=== PATIENT | female | born 1990 | race Caucasian/White ===

== ENCOUNTER 2016-11-18 00:50 | Emergency (ER) | payer OTHER ==
[~2016-11-18] VITALS: Ht 170.2 cm; Wt 165.4 kg
[~2016-11-18 00:50] MED LIST: ABILIFY10 MG PO; ABILIFY5 MG PO; ADDERALL30 MG PO; ALPRAZOLAM0.5 MG PO; ATARAX,VISTARIL50 MG PO; HYDROCODON-ACE1 EAC7 PO; LEXAPRO10 MG PO; NAPROSYN500 MG PO; PRENATAL1 EACH PO; PROZAC40 MG PO; TRAMADOL HCL50 MG PO; XANAX0.5 MG PO
[2016-11-18 02:05] LABS: ADD MIUA? YES; BILIRUBIN NEGATIVE; BLOOD NEGATIVE; COLOR YELLOW ((YELLOW)); GLUCOSE (STRIP) NEGATIVE; KETONES NEGATIVE; LEUKOCYTES NEGATIVE; NITRITE NEGATIVE; PROTEIN (STRIP) NEGATIVE; SPECIFIC GRAVITY 1.023 (1.000-1.030); UROBILINOGEN 0.2 MG/DL (0.2-1.0)
[2016-11-18 02:12] LABS: BACTERIA 2+ /HPF; CALCIUM OXALATE CRYSTALS 1+ /HPF; EPITHELIAL CELLS 1+ /HPF; HYALINE CASTS 0-5 /LPF; MUCUS 1+ /LPF; RED BLOOD CELLS 0-5 /HPF (0-5); UCUL ADDED? YES; WHITE BLOOD CELLS 0-5 /HPF (0-5)
[2016-11-18 02:26] VITALS: BP 146/70
== END 2016-11-18 02:27 | disposition home or self-care (01) ==
LOC: EME 00:50
PROVIDERS: Emergency Medicine
DX: E86.0 Dehydration (principal); F32.9 Major depressive disorder, single episode, unspecified; F41.9 Anxiety disorder, unspecified; E66.9 Obesity, unspecified; Z68.43 Body mass index [BMI] 50.0-59.9, adult; F17.200 Nicotine dependence, unspecified, uncomplicated
CPT/HCPCS: 81003; 84702; 84703; 87077; 87086 GA; 87186; 99281; 99283

== ENCOUNTER 2016-12-27 01:42 | Emergency (ER) | payer OTHER ==
[~2016-12-27] VITALS: Ht 170.2 cm; Wt 171.3 kg
[2016-12-27 02:02] VITALS: BP 183/91
== END 2016-12-27 02:39 | disposition left against medical advice (07) ==
LOC: EME 01:42
DX: M43.6 Torticollis (principal); Z53.21 Procedure and treatment not carried out due to patient leaving prior to being seen by health care provider
CPT/HCPCS: 84702

== ENCOUNTER 2017-02-04 13:47 | Emergency (ER) | payer OTHER ==
[~2017-02-04] VITALS: Ht 170.2 cm; Wt 168.2 kg
[2017-02-04 14:48] LABS: HEMATOCRIT 35.6 % (36.0-46.0); MCH 26.1 PG (29.0-34.0); MCHC 32.6 G/DL (30.0-36.0); MCV 80.2 FL (83-99); MEAN PLAT.VOLUME 10.7 uM^3 (9.5-12.4); PLATELET COUNT 234 K/uL (156-360); RBC DIS.WIDTH-CV 14.8 % (11.8-14.6); RBC DIS.WIDTH-SD 43.2 % (39-53); RED BLOOD COUNT 4.44 M/uL (3.80-5.20); WHITE BLOOD COUNT 8.6 K/uL (4.1-10.2)
[2017-02-04 14:56] LABS: CHLORIDE 106 mEq/L (99-109); POTASSIUM 3.9 mEq/L (3.7-5.4); SODIUM 139 mEq/L (136-147)
[2017-02-04 14:58] LABS: GLUCOSE 126 mg/dL (70-99)
[2017-02-04 14:59] LABS: ANION GAP 10 MEQ/L (2-14)
[2017-02-04 15:02] LABS: GFR ESTIMATE (CALCULATED) > 59 mL/min/
[2017-02-04 15:03] LABS: UREA NITROGEN (BUN) 8 mg/dL (9-23)
[2017-02-04 15:27] LABS: QUANTITATIVE HCG 47633.6 MIU/ML
[2017-02-04 15:57] LABS: ADD MIUA? YES; BILIRUBIN NEGATIVE; BLOOD MODERATE; GLUCOSE (STRIP) NEGATIVE; KETONES NEGATIVE; LEUKOCYTES NEGATIVE; NITRITE NEGATIVE; PROTEIN (STRIP) >=500; SPECIFIC GRAVITY 1.032 (1.000-1.030); UROBILINOGEN 0.2 MG/DL (0.2-1.0)
[2017-02-04 16:00] LABS: COLOR RED ((YELLOW))
[2017-02-04 16:01] LABS: BACTERIA NONE SEEN /HPF; CASTS NONE SEEN /LPF; CRYSTALS NONE SEEN; EPITHELIAL CELLS RARE /HPF; MUCUS NONE SEEN /LPF; RED BLOOD CELLS TNTC /HPF (0-5); WHITE BLOOD CELLS NONE SEEN /HPF (0-5)
[2017-02-04] MEDS ORDERED: ZOFRAN ODT4 MG PO (18:40)
[2017-02-04] MEDS ORDERED: ULTRACET1 TABLET PO (18:40)
[2017-02-04 19:39] VITALS: BP 101/80
== END 2017-02-04 19:41 | disposition home or self-care (01) ==
LOC: EME 13:47
PROVIDERS: Physician Assistant
DX: O20.0 Threatened abortion (principal); O99.341 Other mental disorders complicating pregnancy, first trimester; F32.9 Major depressive disorder, single episode, unspecified; F41.9 Anxiety disorder, unspecified; O99.331 Smoking (tobacco) complicating pregnancy, first trimester; F17.200 Nicotine dependence, unspecified, uncomplicated; Z3A.11 11 weeks gestation of pregnancy; O99.211 Obesity complicating pregnancy, first trimester; E66.01 Morbid (severe) obesity due to excess calories; Z68.43 Body mass index [BMI] 50.0-59.9, adult
CPT/HCPCS: 76801; 80048; 81003; 84702; 85027; 99281; 99284; J3010; J7030

== ENCOUNTER 2017-05-24 16:49 | Emergency (ER) | payer OTHER ==
[~2017-05-24] VITALS: Ht 170.2 cm; Wt 178.9 kg
[~2017-05-24 16:49] MED LIST changes: +ULTRACET1 TABLET PO; +ZOFRAN ODT4 MG PO
[2017-05-24 16:56] VITALS: BP 136/79
== END 2017-05-24 19:18 | disposition left against medical advice (07) ==
LOC: EME 16:49
DX: R09.89 Other specified symptoms and signs involving the circulatory and respiratory systems (principal); M54.9 Dorsalgia, unspecified; Z53.21 Procedure and treatment not carried out due to patient leaving prior to being seen by health care provider
CPT/HCPCS: 80053; 81003; 85027; 87502

== ENCOUNTER 2017-07-29 17:17 | Outpatient (CLI) | payer OTHER ==
[~2017-07-29] VITALS: Ht 170.2 cm; Wt 176.0 kg
[2017-07-29 17:22] VITALS: BP 131/71
[2017-07-29 17:23] VITALS: BP 131/71
[2017-07-29 17:54] VITALS: BP 140/71
[2017-07-29 18:16] LABS: BASOPHIL (%) 0.2 % (0-1); EOSINOPHIL (%) 0.6 % (0-5); EOSINOPHIL COUNT 0.1 K/uL (0-0.3); HEMATOCRIT 34.3 % (36.0-46.0); HEMOGLOBIN 11.1 G/DL (11.9-15.5); IMMATURE GRANULOCYTE (%) 0.7 % (0.0-0.7); LYMPHOCYTE (%) 23.8 % (15-42); LYMPHOCYTE COUNT 2.1 K/uL (1.0-2.8); MCH 26.4 PG (29.0-34.0); MCHC 32.4 G/DL (30.0-36.0); MCV 81.7 FL (83-99); MONOCYTE (%) 5.3 % (3-12); MONOCYTE COUNT 0.5 K/uL (0-0.8); NEUTROPHIL (%) 69.4 % (45-76); PLATELET COUNT 242 K/uL (156-360); RBC DIS.WIDTH-CV 15.6 % (11.8-14.6); RBC DIS.WIDTH-SD 46.7 % (39-53); WHITE BLOOD COUNT 8.7 K/uL (4.1-10.2)
[2017-07-29 18:24] VITALS: BP 135/64
[2017-07-29 18:38] LABS: ALBUMIN 3.2 G/DL (3.2-4.8); ALKALINE PHOSPHATASE 103 IU/L (3-129); ALT (GPT) 10 IU/L (3-49); AST (GOT) 15 IU/L (2-34); CHLORIDE 106 MEQ/L (99-109); CREATININE 0.6 MG/DL (0.6-1.3); GFR ESTIMATE (CALCULATED) > 59 mL/min/; GLUCOSE 87 mg/dL (70-99); LACTATE DEHYDROGENASE 104 IU/L (20-246); POTASSIUM 4.5 MEQ/L (3.7-5.4); SODIUM 136 MEQ/L (136-147); TOTAL BILIRUBIN 0.3 MG/DL (0.0-1.0); TOTAL PROTEIN 6.7 G/DL (6.4-8.3); UREA NITROGEN (BUN) 7 mg/dL (9-23); URIC ACID 3.9 mg/dL (3.1-9.2)
[2017-07-29 19:11] LABS: BILIRUBIN NEGATIVE; BLOOD NEGATIVE; COLOR YELLOW ((YELLOW)); GLUCOSE (STRIP) NEGATIVE; KETONES NEGATIVE; LEUKOCYTES NEGATIVE; NITRITE NEGATIVE; PROTEIN (STRIP) NEGATIVE; SPECIFIC GRAVITY 1.024 (1.000-1.030)
[2017-07-29 19:13] VITALS: BP 132/67
[2017-07-29 19:13] LABS: APPEARANCE CLEAR ((CLEAR)); UCUL ADDED? NO
[2017-07-29 19:38] LABS: UR CREATININE CONCENTRATION 132.9 MG/DL
[2017-07-29 19:43] VITALS: BP 117/57
[2017-07-29 20:11] LABS: AMPHETAMINE NEGATIVE (500 ng/mL); BARBITURATES NEGATIVE (200 ng/mL); BENZODIAZEPINES NEGATIVE (150 ng/mL); BUPRENORPHINE NEGATIVE (10 ng/mL); COCAINE NEGATIVE (150 ng/mL); METHADONE NEGATIVE (200 ng/mL); METHAMPHETAMINE NEGATIVE (500 ng/mL); OPIATES (MORPHINE) NEGATIVE (100 ng/mL); OXYCODONE NEGATIVE (100 ng/mL); PHENCYCLIDINE NEGATIVE (25 ng/mL); PROPOXYPHENE NEGATIVE (300 ng/mL); THC CANNABINOIDS PRESUMPTIVE POSITIVE (50 ng/mL); TRICYCLIC ANTIDEPRESSANTS NEGATIVE (300 ng/mL)
[2017-07-29] MEDS ORDERED: ADULT ASPIRIN81 MG PO (20:37)
[2017-07-29] MEDS ORDERED: PROMETHAZINE HC25 M1 PO (20:38)
[2017-07-29] MEDS ORDERED: PRENATAL TABLE1 EAC3 PO (20:38)
== END 2017-07-29 20:40 | disposition home or self-care (01) ==
LOC: LDRP-OP → 2WEST 17:19 → LDRP-OP 09-26 13:30
PROVIDERS: Advanced Practice Midwife
DX: O13.3 Gestational [pregnancy-induced] hypertension without significant proteinuria, third trimester (principal); Z3A.35 35 weeks gestation of pregnancy
CPT/HCPCS: 80053; 81003; 82570; 83615; 84156; 84550; 84999; 85025; G0378

== ENCOUNTER 2017-08-10 15:24 | Outpatient (CLI) | payer OTHER ==
[~2017-08-10 15:24] MED LIST changes: +ADULT ASPIRIN81 MG PO; +PRENATAL TABLE1 EAC3 PO; +PROMETHAZINE HC25 M1 PO
[2017-08-10 15:52] VITALS: BP 128/63
[2017-08-10 16:28] VITALS: BP 130/62
[2017-08-10 16:40] LABS: BASOPHIL (%) 0.2 % (0-1); EOSINOPHIL (%) 0.3 % (0-5); HEMATOCRIT 33.3 % (36.0-46.0); HEMOGLOBIN 10.9 G/DL (11.9-15.5); IMMATURE GRANULOCYTE (%) 0.5 % (0.0-0.7); LYMPHOCYTE (%) 23.5 % (15-42); LYMPHOCYTE COUNT 2.3 K/uL (1.0-2.8); MCH 26.8 PG (29.0-34.0); MCHC 32.7 G/DL (30.0-36.0); MONOCYTE (%) 4.2 % (3-12); MONOCYTE COUNT 0.4 K/uL (0-0.8); NEUTROPHIL (%) 71.3 % (45-76); NEUTROPHIL COUNT 6.9 K/uL (1.8-6.4); PLATELET COUNT 219 K/uL (156-360); RBC DIS.WIDTH-CV 15.9 % (11.8-14.6); RBC DIS.WIDTH-SD 47.5 % (39-53); RED BLOOD COUNT 4.06 M/uL (3.80-5.20); WHITE BLOOD COUNT 9.6 K/uL (4.1-10.2)
[2017-08-10 17:02] LABS: ALBUMIN 3.1 G/DL (3.2-4.8); ALKALINE PHOSPHATASE 98 IU/L (3-129); ALT (GPT) 9 IU/L (3-49); AST (GOT) 10 IU/L (2-34); CHLORIDE 106 MEQ/L (99-109); CREATININE 0.6 MG/DL (0.6-1.3); GFR ESTIMATE (CALCULATED) > 59 mL/min/; GLUCOSE 81 mg/dL (70-99); POTASSIUM 4.3 MEQ/L (3.7-5.4); SODIUM 136 MEQ/L (136-147); TOTAL BILIRUBIN 0.4 MG/DL (0.0-1.0); TOTAL PROTEIN 6.4 G/DL (6.4-8.3); UREA NITROGEN (BUN) 9 mg/dL (9-23)
[2017-08-10 17:16] LABS: UR CREATININE CONCENTRATION 401.5 MG/DL
[2017-08-10 17:18] VITALS: BP 118/56
== END 2017-08-10 17:30 | disposition home or self-care (01) ==
LOC: LDRP-OP 15:24 → 2WEST 15:26 → LDRP-OP 10-26 22:00
PROVIDERS: Advanced Practice Midwife
DX: O26.893 Other specified pregnancy related conditions, third trimester (principal); R03.0 Elevated blood-pressure reading, without diagnosis of hypertension; O34.219 Maternal care for unspecified type scar from previous cesarean delivery; O99.213 Obesity complicating pregnancy, third trimester; E66.01 Morbid (severe) obesity due to excess calories; O99.343 Other mental disorders complicating pregnancy, third trimester; F41.9 Anxiety disorder, unspecified; F31.9 Bipolar disorder, unspecified; F90.9 Attention-deficit hyperactivity disorder, unspecified type; O99.333 Smoking (tobacco) complicating pregnancy, third trimester; F17.200 Nicotine dependence, unspecified, uncomplicated; Z3A.37 37 weeks gestation of pregnancy
CPT/HCPCS: 59025; 80053; 82570; 84156; 85025; G0378

== ENCOUNTER 2017-08-18 15:25 | Outpatient (CLI) | payer OTHER ==
[2017-08-18] VITALS (16 sets, daily range): BP systolic 121–158; BP diastolic 57–82
[~2017-08-18] VITALS: Ht 170.2 cm; Wt 175.9 kg
[2017-08-18 16:25] LABS: BASOPHIL (%) 0.2 % (0-1); EOSINOPHIL (%) 0.3 % (0-5); HEMATOCRIT 33.6 % (36.0-46.0); HEMOGLOBIN 10.9 G/DL (11.9-15.5); IMMATURE GRANULOCYTE (%) 0.5 % (0.0-0.7); LYMPHOCYTE (%) 22.5 % (15-42); LYMPHOCYTE COUNT 2.2 K/uL (1.0-2.8); MCH 26.4 PG (29.0-34.0); MCHC 32.4 G/DL (30.0-36.0); MCV 81.4 FL (83-99); MONOCYTE (%) 4.6 % (3-12); MONOCYTE COUNT 0.4 K/uL (0-0.8); NEUTROPHIL (%) 71.9 % (45-76); NEUTROPHIL COUNT 6.9 K/uL (1.8-6.4); PLATELET COUNT 239 K/uL (156-360); RBC DIS.WIDTH-CV 15.8 % (11.8-14.6); RED BLOOD COUNT 4.13 M/uL (3.80-5.20); WHITE BLOOD COUNT 9.6 K/uL (4.1-10.2)
[2017-08-18 16:35] LABS: ALBUMIN 3.4 G/DL (3.2-4.8); CHLORIDE 105 MEQ/L (99-109); POTASSIUM 3.8 MEQ/L (3.7-5.4); SODIUM 136 MEQ/L (136-147); TOTAL BILIRUBIN 0.4 MG/DL (0.0-1.0)
[2017-08-18 16:41] LABS: ALKALINE PHOSPHATASE 111 IU/L (3-129); ALT (GPT) 8 IU/L (3-49); AST (GOT) 13 IU/L (2-34); CREATININE 0.6 MG/DL (0.6-1.3); GFR ESTIMATE (CALCULATED) > 59 mL/min/; GLUCOSE 78 mg/dL (70-99); TOTAL PROTEIN 6.6 G/DL (6.4-8.3); UREA NITROGEN (BUN) 13 mg/dL (9-23)
[2017-08-18 16:49] LABS: UR CREATININE CONCENTRATION 180.9 MG/DL
== END 2017-08-18 19:55 | disposition home or self-care (01) ==
LOC: LDRP-OP 15:25 → 2WEST 15:27 → LDRP-OP 10-26 17:48
PROVIDERS: Obstetrics & Gynecology Obstetrics
DX: O99.89 Other specified diseases and conditions complicating pregnancy, childbirth and the puerperium (principal); R51 Headache; O34.219 Maternal care for unspecified type scar from previous cesarean delivery; Z3A.38 38 weeks gestation of pregnancy
CPT/HCPCS: 59025; 80053; 82570; 84156; 85025; G0378

== ENCOUNTER 2017-08-21 09:03 | Inpatient (IN) | payer OTHER ==
[~2017-08-21] VITALS: Ht 170.2 cm; Wt 174.0 kg
[2017-08-21 11:01] LABS: HEMATOCRIT 34.2 % (36.0-46.0); HEMOGLOBIN 11.1 G/DL (11.9-15.5); MCH 27.1 PG (29.0-34.0); MCHC 32.5 G/DL (30.0-36.0); MCV 83.4 FL (83-99); PLATELET COUNT 243 K/uL (156-360); RBC DIS.WIDTH-CV 15.9 % (11.8-14.6); RBC DIS.WIDTH-SD 48.5 % (39-53); WHITE BLOOD COUNT 8.2 K/uL (4.1-10.2)
[2017-08-21 11:12] VITALS: BP 126/63
[2017-08-21 11:37] LABS: ALBUMIN 3.4 G/DL (3.2-4.8); ALKALINE PHOSPHATASE 118 IU/L (3-129); ALT (GPT) 11 IU/L (3-49); AST (GOT) 16 IU/L (2-34); CHLORIDE 105 MEQ/L (99-109); CREATININE 0.6 MG/DL (0.6-1.3); GFR ESTIMATE (CALCULATED) > 59 mL/min/; GLUCOSE 85 mg/dL (70-99); LACTATE DEHYDROGENASE 125 IU/L (20-246); SODIUM 137 MEQ/L (136-147); TOTAL BILIRUBIN 0.4 MG/DL (0.0-1.0); TOTAL PROTEIN 6.4 G/DL (6.4-8.3); UREA NITROGEN (BUN) 7 mg/dL (9-23)
[2017-08-21 16:03] VITALS: BP 121/57
[2017-08-21 17:29] VITALS: BP 110/65
[2017-08-21 19:10] LABS: AMPHETAMINE NEGATIVE (500 ng/mL); BARBITURATES NEGATIVE (200 ng/mL); BENZODIAZEPINES NEGATIVE (150 ng/mL); BUPRENORPHINE NEGATIVE (10 ng/mL); COCAINE NEGATIVE (150 ng/mL); METHADONE NEGATIVE (200 ng/mL); METHAMPHETAMINE NEGATIVE (500 ng/mL); OPIATES (MORPHINE) NEGATIVE (100 ng/mL); OXYCODONE NEGATIVE (100 ng/mL); PHENCYCLIDINE NEGATIVE (25 ng/mL); PROPOXYPHENE NEGATIVE (300 ng/mL); THC CANNABINOIDS PRESUMPTIVE POSITIVE (50 ng/mL); TRICYCLIC ANTIDEPRESSANTS NEGATIVE (300 ng/mL)
[2017-08-21 19:43] VITALS: BP 141/66
[2017-08-21 21:29] VITALS: BP 128/61
[2017-08-21 23:22] VITALS: BP 136/67
[2017-08-22] VITALS (7 sets, daily range): BP systolic 118–144; BP diastolic 56–74
[2017-08-22 06:24] LABS: BASOPHIL (%) 0.2 % (0-1); EOSINOPHIL (%) 0.6 % (0-5); EOSINOPHIL COUNT 0.1 K/uL (0-0.3); HEMATOCRIT 30.4 % (36.0-46.0); HEMOGLOBIN 9.7 G/DL (11.9-15.5); IMMATURE GRANULOCYTE (%) 0.8 % (0.0-0.7); LYMPHOCYTE (%) 21.6 % (15-42); LYMPHOCYTE COUNT 2.3 K/uL (1.0-2.8); MCH 26.7 PG (29.0-34.0); MCHC 31.9 G/DL (30.0-36.0); MCV 83.7 FL (83-99); MONOCYTE COUNT 0.5 K/uL (0-0.8); NEUTROPHIL (%) 71.8 % (45-76); NEUTROPHIL COUNT 7.6 K/uL (1.8-6.4); PLATELET COUNT 213 K/uL (156-360); RBC DIS.WIDTH-SD 48.6 % (39-53); RED BLOOD COUNT 3.63 M/uL (3.80-5.20); WHITE BLOOD COUNT 10.5 K/uL (4.1-10.2)
[2017-08-23 03:29] VITALS: BP 128/58
[2017-08-23 07:28] VITALS: BP 126/52
[2017-08-23 10:40] VITALS: BP 137/66
[2017-08-23] MEDS ORDERED: ARIPIPRAZOLE5 MG PO (11:34)
[2017-08-23] MEDS ORDERED: ENDOCET 5-3251 EACH PO (11:34)
[2017-08-23] MEDS ORDERED: IBUPROFEN800 MG PO (11:34)
[2017-08-23] MEDS ORDERED: BUPROPION XL150 MG PO (11:34)
== END 2017-08-23 13:45 | disposition home or self-care (01) | DRG 765 ==
LOC: 2WEST 09:03 → 2SOUTH 10:39 → 2WEST 08-23 13:45
PROVIDERS: Obstetrics & Gynecology
PROC: 10D00Z1 Extraction of Products of Conception, Low, Open Approach (ICD-10-PCS; principal; 2017-08-21)
PROC: 0UL70CZ Occlusion of Bilateral Fallopian Tubes with Extraluminal Device, Open Approach (ICD-10-PCS; principal; 2017-08-21)
DX: O34.211 Maternal care for low transverse scar from previous cesarean delivery (principal); O99.214 Obesity complicating childbirth; E66.01 Morbid (severe) obesity due to excess calories; F12.90 Cannabis use, unspecified, uncomplicated; O99.324 Drug use complicating childbirth; O13.4 Gestational [pregnancy-induced] hypertension without significant proteinuria, complicating childbirth; O99.344 Other mental disorders complicating childbirth; O69.81X0 Labor and delivery complicated by cord around neck, without compression, not applicable or unspecified; F41.9 Anxiety disorder, unspecified; F90.9 Attention-deficit hyperactivity disorder, unspecified type; F31.9 Bipolar disorder, unspecified; F60.9 Personality disorder, unspecified; O77.0 Labor and delivery complicated by meconium in amniotic fluid; I10 Essential (primary) hypertension; O99.02 Anemia complicating childbirth; D62 Acute posthemorrhagic anemia; O99.334 Smoking (tobacco) complicating childbirth; F17.210 Nicotine dependence, cigarettes, uncomplicated; Z88.5 Allergy status to narcotic agent; Z30.2 Encounter for sterilization; Z3A.39 39 weeks gestation of pregnancy; Z83.3 Family history of diabetes mellitus; Z68.41 Body mass index [BMI] 40.0-44.9, adult; Z37.0 Single live birth; Z79.899 Other long term (current) drug therapy; Z80.8 Family history of malignant neoplasm of other organs or systems; Z82.49 Family history of ischemic heart disease and other diseases of the circulatory system; Z81.8 Family history of other mental and behavioral disorders
CPT/HCPCS: 59025; 80053; 82570; 83615; 84156; 84999; 85025; 85027; 88307; G0378; J0690; J1100; J1885; J2250; J2274; J2405; J7120; J7643; Q0169

== ENCOUNTER 2017-08-25 20:39 | Inpatient (IN) | payer OTHER ==
[~2017-08-25] VITALS: Ht 170.2 cm; Wt 174.2 kg
[~2017-08-25 20:39] MED LIST changes: +ARIPIPRAZOLE5 MG PO; +BUPROPION XL150 MG PO; +ENDOCET 5-3251 EACH PO; +IBUPROFEN800 MG PO
[2017-08-25 21:20] LABS: HEMATOCRIT 31.1 % (36.0-46.0); HEMOGLOBIN 10.2 G/DL (11.9-15.5); MCH 27.3 PG (29.0-34.0); MCHC 32.8 G/DL (30.0-36.0); MCV 83.2 FL (83-99); PLATELET COUNT 247 K/uL (156-360); RBC DIS.WIDTH-CV 15.9 % (11.8-14.6); RBC DIS.WIDTH-SD 48.3 % (39-53); RED BLOOD COUNT 3.74 M/uL (3.80-5.20); WHITE BLOOD COUNT 8.2 K/uL (4.1-10.2)
[2017-08-25 21:38] LABS: ALBUMIN 3.2 g/dL (3.2-4.8); CHLORIDE 107 mEq/L (99-109); POTASSIUM 4.1 mEq/L (3.7-5.4); SODIUM 140 mEq/L (136-147)
[2017-08-25 21:41] LABS: GLUCOSE 86 mg/dL (70-99); TOTAL PROTEIN 6.4 g/dL (6.4-8.3)
[2017-08-25 21:43] LABS: TOTAL BILIRUBIN 0.4 mg/dL (0.0-1.0)
[2017-08-25 21:44] LABS: ALKALINE PHOSPHATASE 91 IU/L (3-129); CREATININE 0.7 mg/dL (0.6-1.3); GFR ESTIMATE (CALCULATED) > 59 mL/min/
[2017-08-25 21:46] LABS: AST (GOT) 16 IU/L (2-34); UREA NITROGEN (BUN) 11 mg/dL (9-23)
[2017-08-25 21:47] LABS: ALT (GPT) 15 IU/L (3-49)
[2017-08-25 21:53] LABS: QUANTITATIVE HCG 41.3 MIU/ML
[2017-08-25] MEDS ORDERED: PROMETHAZINE HC25 M1 PO (22:50)
[2017-08-26] VITALS (7 sets, daily range): BP systolic 118–177; BP diastolic 61–80
[2017-08-26 06:19] LABS: APPEARANCE CLEAR ((CLEAR)); BILIRUBIN NEGATIVE; BLOOD SMALL; COLOR YELLOW ((YELLOW)); GLUCOSE (STRIP) NEGATIVE; KETONES NEGATIVE; LEUKOCYTES NEGATIVE; NITRITE NEGATIVE; PROTEIN (STRIP) NEGATIVE; SPECIFIC GRAVITY 1.016 (1.000-1.030); UROBILINOGEN 0.2 MG/DL (0.2-1.0)
[2017-08-26 06:28] LABS: BACTERIA NONE SEEN /HPF; EPITHELIAL CELLS RARE /HPF; MUCUS TRACE /LPF; RED BLOOD CELLS 0-5 /HPF (0-5); UCUL ADDED? NO; WHITE BLOOD CELLS 0-5 /HPF (0-5)
[2017-08-26] MEDS ORDERED: ABILIFY5 MG PO (13:35)
[2017-08-27 03:30] VITALS: BP 129/60
[2017-08-27 07:39] VITALS: BP 133/63
[2017-08-27 08:16] LABS: BASOPHIL (%) 0.3 % (0-1); EOSINOPHIL (%) 2.6 % (0-5); EOSINOPHIL COUNT 0.2 K/uL (0-0.3); HEMATOCRIT 30.2 % (36.0-46.0); HEMOGLOBIN 9.6 G/DL (11.9-15.5); IMMATURE GRANULOCYTE (%) 0.5 % (0.0-0.7); LYMPHOCYTE (%) 34.3 % (15-42); LYMPHOCYTE COUNT 2.2 K/uL (1.0-2.8); MCH 26.9 PG (29.0-34.0); MCHC 31.8 G/DL (30.0-36.0); MCV 84.6 FL (83-99); MONOCYTE (%) 6.1 % (3-12); MONOCYTE COUNT 0.4 K/uL (0-0.8); NEUTROPHIL (%) 56.2 % (45-76); NEUTROPHIL COUNT 3.5 K/uL (1.8-6.4); PLATELET COUNT 242 K/uL (156-360); RBC DIS.WIDTH-CV 15.8 % (11.8-14.6); RBC DIS.WIDTH-SD 49.1 % (39-53); RED BLOOD COUNT 3.57 M/uL (3.80-5.20); WHITE BLOOD COUNT 6.3 K/uL (4.1-10.2)
[2017-08-27 09:35] LABS: ALBUMIN 2.9 G/DL (3.2-4.8); ALT (GPT) 9 IU/L (3-49); AST (GOT) 9 IU/L (2-34); CHLORIDE 108 MEQ/L (99-109); CREATININE 0.7 MG/DL (0.6-1.3); GFR ESTIMATE (CALCULATED) > 59 mL/min/; GLUCOSE 90 mg/dL (70-99); POTASSIUM 3.9 MEQ/L (3.7-5.4); SODIUM 141 MEQ/L (136-147); TOTAL BILIRUBIN 0.4 MG/DL (0.0-1.0); TOTAL PROTEIN 5.6 G/DL (6.4-8.3); UREA NITROGEN (BUN) 13 mg/dL (9-23)
[2017-08-27 09:37] LABS: ALKALINE PHOSPHATASE 71 IU/L (3-129)
[2017-08-27 15:12] VITALS: BP 134/64
[2017-08-27 21:02] VITALS: BP 150/78
[2017-08-28 00:19] VITALS: BP 148/84
[2017-08-28 04:12] VITALS: BP 152/79
[2017-08-28 07:52] VITALS: BP 144/95
[2017-08-28 11:02] VITALS: BP 142/72
[2017-08-28 16:42] VITALS: BP 138/65
[2017-08-28] MEDS ORDERED: IBUPROFEN800 MG PO (17:09)
[2017-08-28] MEDS ORDERED: ENDOCET 5-3251 EACH PO (17:11)
[2017-08-28] MEDS ORDERED: AUGMENTIN500 MG PO (17:11)
[2017-08-28] MEDS ORDERED: HYDROCHLOROTHIA25 MG PO (17:18)
== END 2017-08-28 18:50 | disposition home or self-care (01) | DRG 776 ==
LOC: EME 20:39 → EDOF 08-26 00:57 → ENRESERV 08-26 00:59 → 2EAST 08-26 02:26
PROVIDERS: Emergency Medicine; Obstetrics & Gynecology
DX: O86.0 Infection of obstetric surgical wound (principal); L03.311 Cellulitis of abdominal wall; O90.81 Anemia of the puerperium; O99.345 Other mental disorders complicating the puerperium; F41.9 Anxiety disorder, unspecified; O13.5 Gestational [pregnancy-induced] hypertension without significant proteinuria, complicating the puerperium; F32.9 Major depressive disorder, single episode, unspecified; F90.9 Attention-deficit hyperactivity disorder, unspecified type; F41.0 Panic disorder [episodic paroxysmal anxiety]; R60.0 Localized edema; F31.9 Bipolar disorder, unspecified; O99.325 Drug use complicating the puerperium; F12.90 Cannabis use, unspecified, uncomplicated; Z97.8 Presence of other specified devices; Z87.891 Personal history of nicotine dependence; Z91.14 Patient's other noncompliance with medication regimen
CPT/HCPCS: 74176; 80053; 80202; 81003; 84702; 85025; 85027; 99281; 99285; J0295; J1170; J1885; J3010; J3370; J7050; J7120; Q0169

== ENCOUNTER 2017-08-30 16:56 | Inpatient (IN) | payer OTHER ==
[~2017-08-30] VITALS: Ht 165.1 cm; Wt 174.1 kg
[~2017-08-30 16:56] MED LIST changes: +AUGMENTIN500 MG PO; +HYDROCHLOROTHIA25 MG PO
[2017-08-30 18:33] LABS: BASOPHIL (%) 0.2 % (0-1); EOSINOPHIL (%) 1.6 % (0-5); EOSINOPHIL COUNT 0.1 K/uL (0-0.3); HEMATOCRIT 33.1 % (36.0-46.0); HEMOGLOBIN 11.1 G/DL (11.9-15.5); IMMATURE GRANULOCYTE (%) 0.5 % (0.0-0.7); LYMPHOCYTE COUNT 2.2 K/uL (1.0-2.8); MCH 27.5 PG (29.0-34.0); MCHC 33.5 G/DL (30.0-36.0); MCV 82.1 FL (83-99); MONOCYTE (%) 3.9 % (3-12); MONOCYTE COUNT 0.3 K/uL (0-0.8); NEUTROPHIL (%) 67.8 % (45-76); NEUTROPHIL COUNT 5.8 K/uL (1.8-6.4); RBC DIS.WIDTH-CV 15.2 % (11.8-14.6); RBC DIS.WIDTH-SD 45.9 % (39-53); RED BLOOD COUNT 4.03 M/uL (3.80-5.20); WHITE BLOOD COUNT 8.6 K/uL (4.1-10.2)
[2017-08-30 18:37] LABS: PLATELET COUNT 332 K/uL (156-360)
[2017-08-30 18:49] LABS: CHLORIDE 103 mEq/L (99-109); POTASSIUM 4.2 mEq/L (3.7-5.4); SODIUM 139 mEq/L (136-147)
[2017-08-30 18:50] LABS: GLUCOSE 79 mg/dL (70-99)
[2017-08-30 18:54] LABS: CREATININE 0.9 mg/dL (0.6-1.3); GFR ESTIMATE (CALCULATED) > 59 mL/min/
[2017-08-30 18:55] LABS: UREA NITROGEN (BUN) 13 mg/dL (9-23)
[2017-08-30 19:11] LABS: APPEARANCE CLEAR ((CLEAR)); BILIRUBIN NEGATIVE; BLOOD LARGE; COLOR YELLOW ((YELLOW)); GLUCOSE (STRIP) NEGATIVE; KETONES NEGATIVE; LEUKOCYTES TRACE; NITRITE NEGATIVE; PROTEIN (STRIP) 30; SPECIFIC GRAVITY 1.012 (1.000-1.030); UROBILINOGEN 0.2 MG/DL (0.2-1.0)
[2017-08-30 19:39] LABS: ALBUMIN 3.6 g/dL (3.2-4.8)
[2017-08-30 19:40] LABS: BACTERIA RARE /HPF; EPITHELIAL CELLS RARE /HPF; HYALINE CASTS 0-5 /LPF; MUCUS TRACE /LPF; RED BLOOD CELLS TNTC /HPF (0-5); UCUL ADDED? YES; WHITE BLOOD CELLS 20-30 /HPF (0-5)
[2017-08-30 19:40] LABS: CHLORIDE 102 mEq/L (99-109); POTASSIUM 4.1 mEq/L (3.7-5.4); SODIUM 138 mEq/L (136-147)
[2017-08-30 19:42] LABS: GLUCOSE 78 mg/dL (70-99)
[2017-08-30 19:44] LABS: TOTAL BILIRUBIN 0.4 mg/dL (0.0-1.0)
[2017-08-30 19:45] LABS: ALKALINE PHOSPHATASE 89 IU/L (3-129)
[2017-08-30 19:46] LABS: CREATININE 0.9 mg/dL (0.6-1.3); GFR ESTIMATE (CALCULATED) > 59 mL/min/
[2017-08-30 19:47] LABS: UREA NITROGEN (BUN) 13 mg/dL (9-23)
[2017-08-30 19:49] LABS: ALT (GPT) 19 IU/L (3-49)
[2017-08-30 19:54] LABS: AST (GOT) 28 IU/L (2-34); TOTAL PROTEIN 7.4 g/dL (6.4-8.3)
[2017-08-30] MEDS ORDERED: IRON325 M1 PO (20:26)
[2017-08-30] MEDS ORDERED: HYDROCHLOROTHIA25 MG PO (20:26)
[2017-08-30 22:22] VITALS: BP 155/71
[2017-08-31 03:56] VITALS: BP 135/80
[2017-08-31 06:45] VITALS: BP 132/80
[2017-08-31 11:53] VITALS: BP 136/66
[2017-08-31 15:39] VITALS: BP 128/61
[2017-08-31 19:41] VITALS: BP 115/78
[2017-08-31 23:13] VITALS: BP 116/72
[2017-09-01 08:40] VITALS: BP 133/64
[2017-09-01 15:34] VITALS: BP 141/74
[2017-09-01 20:00] VITALS: BP 122/62
[2017-09-01 23:00] VITALS: BP 122/62
[2017-09-02 03:54] VITALS: BP 130/72
[2017-09-02 07:32] VITALS: BP 139/66
[2017-09-02 08:37] LABS: CREATININE 0.8 MG/DL (0.6-1.3); GFR ESTIMATE (CALCULATED) > 59 mL/min/
[2017-09-02 11:52] VITALS: BP 142/60
[2017-09-02 16:05] VITALS: BP 132/66
[2017-09-02 23:36] VITALS: BP 128/82
[2017-09-03 04:10] VITALS: BP 128/75
[2017-09-03 08:06] VITALS: BP 120/68
[2017-09-03 16:17] VITALS: BP 130/72
[2017-09-03 21:51] VITALS: BP 124/70
[2017-09-04 00:55] VITALS: BP 128/78
[2017-09-04 04:16] VITALS: BP 128/82
[2017-09-04 07:00] VITALS: BP 121/70
[2017-09-04] MEDS ORDERED: DOCUSATE SODIU100 MG PO (10:27)
[2017-09-04] MEDS ORDERED: SENNA LAX8.6 MG PO (10:28)
[2017-09-04] MEDS ORDERED: ENDOCET 5-3251 EACH PO (10:29)
[2017-09-04] MEDS ORDERED: CLEOCIN150 MG PO (10:32)
[2017-09-04] MEDS ORDERED: CIPROFLOXACIN500 M1 PO (10:32)
[2017-09-04 16:00] VITALS: BP 132/76
== END 2017-09-04 17:02 | disposition home health service (06) | DRG 776 ==
LOC: EME 16:56 → RME 16:56 → 2EASTP 20:29 → EDOF 20:29 → CANRESERV 20:36 → ENRESERV 20:36 → 2EASTP 22:14
PROVIDERS: Nurse Practitioner Family; Obstetrics & Gynecology
PROC: 0HD7XZZ Extraction of Abdomen Skin, External Approach (ICD-10-PCS; principal; 2017-09-01)
PROC: 0H97XZZ Drainage of Abdomen Skin, External Approach (ICD-10-PCS; principal; 2017-09-01)
DX: O86.0 Infection of obstetric surgical wound (principal); O90.2 Hematoma of obstetric wound; O99.73 Diseases of the skin and subcutaneous tissue complicating the puerperium; L03.311 Cellulitis of abdominal wall; O99.63 Diseases of the digestive system complicating the puerperium; K21.9 Gastro-esophageal reflux disease without esophagitis; O99.345 Other mental disorders complicating the puerperium; F41.0 Panic disorder [episodic paroxysmal anxiety]; F31.9 Bipolar disorder, unspecified; O90.81 Anemia of the puerperium; D64.9 Anemia, unspecified; O13.5 Gestational [pregnancy-induced] hypertension without significant proteinuria, complicating the puerperium; O99.215 Obesity complicating the puerperium; E66.01 Morbid (severe) obesity due to excess calories; E65 Localized adiposity; Z87.891 Personal history of nicotine dependence
CPT/HCPCS: 74177; 80048; 80053; 80202; 81003; 82565; 83605; 85025; 86850; 86900; 86901; 87040; 87070; 87075; 87086 GA; 87205; 99281; 99285; G0378; J0131; J0295; J0330; J1100; J1170; J1885; J2060; J2250; J2405; J2765; J3010; J3370; J7030; J7050; J7120

== ENCOUNTER 2017-11-24 21:51 | Emergency (ER) | payer OTHER ==
[~2017-11-24] VITALS: Ht 170.2 cm; Wt 168.2 kg
[~2017-11-24 21:51] MED LIST changes: +CIPROFLOXACIN500 M1 PO; +CLEOCIN150 MG PO; +DOCUSATE SODIU100 MG PO; +IRON325 M1 PO; +SENNA LAX8.6 MG PO
[2017-11-25 01:29] LABS: BASOPHIL (%) 0.3 % (0-1); EOSINOPHIL COUNT 0.2 K/uL (0-0.3); HEMOGLOBIN 10.1 G/DL (11.9-15.5); IMMATURE GRANULOCYTE (%) 0.5 % (0.0-0.7); LYMPHOCYTE (%) 29.1 % (15-42); LYMPHOCYTE COUNT 2.9 K/uL (1.0-2.8); MCH 24.5 PG (29.0-34.0); MCHC 31.6 G/DL (30.0-36.0); MCV 77.7 FL (83-99); MONOCYTE (%) 4.2 % (3-12); MONOCYTE COUNT 0.4 K/uL (0-0.8); NEUTROPHIL (%) 63.9 % (45-76); NEUTROPHIL COUNT 6.3 K/uL (1.8-6.4); PLATELET COUNT 357 K/uL (156-360); RBC DIS.WIDTH-SD 42.4 % (39-53); RED BLOOD COUNT 4.12 M/uL (3.80-5.20); WHITE BLOOD COUNT 9.9 K/uL (4.1-10.2)
[2017-11-25 01:38] LABS: CHLORIDE 102 mEq/L (99-109); POTASSIUM 4.1 mEq/L (3.7-5.4); SODIUM 136 mEq/L (136-147)
[2017-11-25 01:40] LABS: GLUCOSE 91 mg/dL (70-99)
[2017-11-25 01:44] LABS: CREATININE 0.8 mg/dL (0.6-1.3); GFR ESTIMATE (CALCULATED) > 59 mL/min/
[2017-11-25 01:45] LABS: UREA NITROGEN (BUN) 11 mg/dL (9-23)
[2017-11-25 01:46] LABS: ALBUMIN 3.5 g/dL (3.2-4.8)
[2017-11-25 01:49] LABS: TOTAL PROTEIN 7.2 g/dL (6.4-8.3)
[2017-11-25 01:50] LABS: TOTAL BILIRUBIN 0.4 mg/dL (0.0-1.0)
[2017-11-25 01:52] LABS: ALKALINE PHOSPHATASE 80 IU/L (3-129)
[2017-11-25 01:54] LABS: AST (GOT) 10 IU/L (2-34); DIRECT BILIRUBIN 0.1 mg/dL (0.0-0.3)
[2017-11-25 01:55] LABS: ALT (GPT) 11 IU/L (3-49); LIPASE 5 U/L (1.0-51.0)
[2017-11-25 01:56] LABS: APPEARANCE CLEAR ((CLEAR)); BILIRUBIN NEGATIVE; BLOOD NEGATIVE; COLOR YELLOW ((YELLOW)); GLUCOSE (STRIP) NEGATIVE; KETONES NEGATIVE; LEUKOCYTES NEGATIVE; NITRITE NEGATIVE; PROTEIN (STRIP) NEGATIVE; UCUL ADDED? NO
[2017-11-25] MEDS ORDERED: PERCOCET 5/31 TABLET PO (04:17)
[2017-11-25] MEDS ORDERED: CLEOCIN300 MG PO (04:17)
[2017-11-25 05:33] VITALS: BP 122/74
== END 2017-11-25 05:35 | disposition home or self-care (01) ==
LOC: EME 21:51
PROVIDERS: Emergency Medicine
DX: T81.4XXA Infection following a procedure, initial encounter (principal); K21.9 Gastro-esophageal reflux disease without esophagitis; F41.9 Anxiety disorder, unspecified; F32.9 Major depressive disorder, single episode, unspecified; F31.9 Bipolar disorder, unspecified; Z87.891 Personal history of nicotine dependence; Z98.51 Tubal ligation status; Z88.5 Allergy status to narcotic agent
CPT/HCPCS: 74177; 80048; 80076; 81003; 81025; 83690; 85025; 87040; 99281; 99285; J2270; J2405; J7030